=== PATIENT | male | born 1990 | race Caucasian/White ===

== ENCOUNTER 2016-10-16 16:03 | Emergency (ER) | payer OTHER ==
[2016-10-16] MEDS ORDERED: LIDOCAINE 2% MDV 20 ML VIAL As Ordered ONE (18:08)
[2016-10-16] MEDS ORDERED: LIDOCAINE 1% MDV 20ML VIAL As Ordered ONE (18:18)
--- NOTE | 2016-10-16 18:51 | EDDOCDS ---
Physician Documentation [facility] Name: Valentino Antonio Age: 26 yrs Sex: Male : 1990 Arrival Date: 10/16/2016 Time: 16:03 Bed PD Private MD: NO PRIMARY PHYSICIAN, . Disposition: 10/16/16 18:45 Discharged to Home/Self Care. Impression: Laceration without foreign body of left thumb with damage to nail, Laceration without foreign body of left middle finger with damage to nail. - Condition is Stable. - Discharge Instructions: Laceration Care, Adult, Fingernail or Toenail Loss. - Medication Reconciliation, Local Pharmacy Hours form. - Follow up: LIONEL Theodore; When: Call to arrange an appointment; Reason: Recheck today's complaints, Continuance of care. - Problem is new. - Symptoms are unchanged. - Notes: have suture removed in 10-13 days Historical: - Allergies: no known allergies; - Home Meds: 1. none - PMHx: none; - PSHx: none; - Immunization history:: Last tetanus immunization: up to date. - Family history: Not pertinent. - Social history: Smoking status: Patient uses tobacco products, heavy tobacco smoker. Patient/guardian denies using alcohol, street drugs, No barriers to communication noted, The patient speaks fluent Kazakh, Speaks appropriately for age. - : The pt / caregiver states he / she is not on anticoagulants. Home medication list is obtained from the patient. - Exposure Risk Screening:: None identified. Vital Signs: 10/16 16:04 BP 134 / 68; Pulse 107; Resp 18; Temp 97.2(T); Pulse Ox 97% on R/A; Weight 61.23 kg / dem1 134.99 lbs; Height 65 in. (165.10 cm); Pain 6/10; 16:04 Body Mass Index 22.46 (61.23 kg, 165.10 cm) dem1 MDM: 18:05 Lidocaine 20 mg/mL (2 %) 10 ml Infiltration once; to bedside ordered. mo1 18:05 Dressing ordered. mo1 18:13 Financial registration complete. gjb 18:14 [facility] Payment Agreement was scanned into [employer] and attached to record. gjb 18:45 Splint Affected Extremity ordered. mo1 Administered Medications: 18:45 Drug: Lidocaine 10 ml [lidocaine 20 mg/mL (2 %) injection solution (10 mL)] {Note: use kr3 by Michael ELLIOTT.} Route: Infiltration; Signatures: Keke YehRN RN kr3 Cheryl Lozano RN RN ttb Valentino Norton PA PA mo1 Valentine Harden The chart was reviewed and I authenticate all verbal orders and agree with the evaluation and treatment provided.Attachments: 18:14 [facility] [place] Payment Agreement [employer] MTDD
--- NOTE | 2016-10-16 18:51 | EDDOCDS ---
Nurse's Notes [facility] Name: Valentino Antonio Age: 26 yrs Sex: Male : 1990 Arrival Date: 10/16/2016 Time: 16:03 Bed PD Private MD: NO PRIMARY PHYSICIAN, . Diagnosis: Laceration without foreign body of left thumb with damage to nail;Laceration without foreign body of left middle finger with damage to nail Presentation: 10/16 16:51 Presenting complaint: Patient states: cut thumb and middle finger on left hand on screw ttb approx 2 hours ago. Bleeding controlled in triage. Adult Sepsis Screening: The patient does not have new or worsening altered mentation. Patient's respiratory rate is less than 22. Systolic blood pressure is greater than 100. Patient has a qSOFA score of 0- Negative Sepsis Screen. Suicide/Homicide risk assessment- the patient denies having any suicidal and/or homicidal ideations and does not present with any other emotional, behavioral or mental health complaints. Status: The patient is an active duty car rental service attendant. Transition of care: patient was not received from another setting of care. 16:51 Acuity: SHIMON Level 4 ttb 16:51 Method Of Arrival: Walkin/Carried/Asstd ttb Triage Assessment: 16:52 General: Appears in no apparent distress, well nourished, well groomed, Behavior is ttb appropriate for age, cooperative, pleasant. Pain: Location: fingers on left hand 6/10. HIV screening NA for this visit Offered previously. Neurological: Level of Consciousness is awake, alert. Cardiovascular: Chest pain is denied. Respiratory: No deficits noted. Airway is patent Denies cough, shortness of breath. Derm: Skin is normal, lac noted to left thumb and middle finger. Injury Description: Laceration sustained to left thumb and middle finger is clean, 0.5 to 2.5 cm long, was sustained 2-4 hours ago. is bleeding no active bleeding noted. Historical: - Allergies: no known allergies; - Home Meds: 1. none - PMHx: none; - PSHx: none; - Immunization history:: Last tetanus immunization: up to date. - Family history: Not pertinent. - Social history: Smoking status: Patient uses tobacco products, heavy tobacco smoker. Patient/guardian denies using alcohol, street drugs, No barriers to communication noted, The patient speaks fluent [place] Islander, Speaks appropriately for age. - : The pt / caregiver states he / she is not on anticoagulants. Home medication list is obtained from the patient. - Exposure Risk Screening:: None identified. Screenin:11 Screening information is obtained from the patient. Fall risk: No risks identified. kr3 Assistance ADL's: requires no assistance with activities of daily living. Abuse/DV Screen: The patient / caregiver reports he/she is: not in a situation that causes fear, pain or injury. Nutritional screening: No deficits noted. Advance Directives: Currently, there is no health care proxy. home support is adequate. Assessment: 18:10 General: Appears in no apparent distress, comfortable, Behavior is cooperative. kr3 Respiratory: Respiratory effort is even, unlabored. Musculoskeletal: Range of motion intact in all extremities. Injury Description: Laceration sustained to left middle finger and left thumb is clean, is bleeding no active bleeding noted. Vital Signs: 16:04 BP 134 / 68; Pulse 107; Resp 18; Temp 97.2(T); Pulse Ox 97% on R/A; Weight 61.23 kg; [facility] Height 65 in. (165.10 cm); Pain 6/10; 16:04 Body Mass Index 22.46 (61.23 kg, 165.10 cm) [facility] Vitals: 16:04 Log In Time: October 16, 2016 at 16:02. [facility] ED Course: 16:03 Patient visited by Jeannie Juarez. dem1 16:03 NO PRIMARY PHYSICIAN, . is Private Physician. dem1 16:03 Patient moved to Waiting [facility] 16:04 Patient moved to Pre RCE dem1 16:51 Triage Initiated ttb 17:01 Patient moved to Triage 1 ka4 18:01 Valentino Norton PA is PHCP. mo1 18:01 Melonie Au MD is Attending Physician. mo1 18:03 Patient visited by Valentino Norton PA. mo1 18:07 Patient moved to PD kr3 18:11 The patient / caregiver is instructed regarding the plan of care and ED course. Patient kr3 has correct armband on for positive identification. 18:11 No IV's were initiated during this patient's visit. No procedures done that require kr3 assistance. 18:14 [place] [place] Agreement was scanned into [employer] and attached to record. gjb 18:28 Patient name changed from Valentino\S\\S\Manderson\S\ to Valentino\S\Jakob\S\Marisela. EDMS 18:45 Ewelina [facility] is Referral Physician. mo1 18:50 Wound care to laceration bulky dressing applied by Naz ELLIOTT. kr3 Administered Medications: 18:45 Drug: Lidocaine 10 ml [lidocaine 20 mg/mL (2 %) injection solution (10 mL)] {Note: use kr3 by Michael ELLIOTT.} Route: Infiltration; Order Results: There are currently no results for this order. Outcome: 18:11 No special radiology studies were completed. kr3 18:45 Discharge ordered by Provider. mo1 18:49 Discharge Assessment: patient administered narcotics - no. The following High Risk kr3 Discharge criteria are identified: None. Discharged to home ambulatory. Condition: stable. Discharge instructions given to patient, Instructed on discharge instructions, follow up and referral plans. wound care, Demonstrated understanding of instructions, Pt was receptive of discharge instructions/ teaching. Property sent home with patient. 18:50 Patient left the ED. kr3 Signatures: Dispatcher [employer] EDMS Keke Yeh,RN RN kr3 Jeannie Juarez Teresa, CARLIN RN ttb Valentino Norton PA PA mo1 Keturah Sampson LPN LPN ka4 Beck, Gabriela [facility] MTDD
--- NOTE | 2016-10-18 19:51 | EDDOCDS ---
Nurse's Notes [facility] Name: Valentino Antonio Age: 26 yrs Sex: Male : 1990 Arrival Date: 10/16/2016 Time: 16:03 Bed PD Private MD: NO PRIMARY PHYSICIAN, . Diagnosis: Laceration without foreign body of left thumb with damage to nail;Laceration without foreign body of left middle finger with damage to nail Presentation: 10/16 16:51 Presenting complaint: Patient states: cut thumb and middle finger on left hand on screw ttb approx 2 hours ago. Bleeding controlled in triage. Adult Sepsis Screening: The patient does not have new or worsening altered mentation. Patient's respiratory rate is less than 22. Systolic blood pressure is greater than 100. Patient has a qSOFA score of 0- Negative Sepsis Screen. Suicide/Homicide risk assessment- the patient denies having any suicidal and/or homicidal ideations and does not present with any other emotional, behavioral or mental health complaints. Status: The patient is an active duty seafood service team member. Transition of care: patient was not received from another setting of care. 16:51 Acuity: SHIMON Level 4 ttb 16:51 Method Of Arrival: Walkin/Carried/Asstd ttb Triage Assessment: 16:52 General: Appears in no apparent distress, well nourished, well groomed, Behavior is ttb appropriate for age, cooperative, pleasant. Pain: Location: fingers on left hand 6/10. HIV screening NA for this visit Offered previously. Neurological: Level of Consciousness is awake, alert. Cardiovascular: Chest pain is denied. Respiratory: No deficits noted. Airway is patent Denies cough, shortness of breath. Derm: Skin is normal, lac noted to left thumb and middle finger. Injury Description: Laceration sustained to left thumb and middle finger is clean, 0.5 to 2.5 cm long, was sustained 2-4 hours ago. is bleeding no active bleeding noted. Historical: - Allergies: no known allergies; - Home Meds: 1. none - PMHx: none; - PSHx: none; - Immunization history:: Last tetanus immunization: up to date. - Family history: Not pertinent. - Social history: Smoking status: Patient uses tobacco products, heavy tobacco smoker. Patient/guardian denies using alcohol, street drugs, No barriers to communication noted, The patient speaks fluent South African, Speaks appropriately for age. - : The pt / caregiver states he / she is not on anticoagulants. Home medication list is obtained from the patient. - Exposure Risk Screening:: None identified. Screenin:11 Screening information is obtained from the patient. Fall risk: No risks identified. kr3 Assistance ADL's: requires no assistance with activities of daily living. Abuse/DV Screen: The patient / caregiver reports he/she is: not in a situation that causes fear, pain or injury. Nutritional screening: No deficits noted. Advance Directives: Currently, there is no health care proxy. home support is adequate. Assessment: 18:10 General: Appears in no apparent distress, comfortable, Behavior is cooperative. kr3 Respiratory: Respiratory effort is even, unlabored. Musculoskeletal: Range of motion intact in all extremities. Injury Description: Laceration sustained to left middle finger and left thumb is clean, is bleeding no active bleeding noted. Vital Signs: 16:04 BP 134 / 68; Pulse 107; Resp 18; Temp 97.2(T); Pulse Ox 97% on R/A; Weight 61.23 kg; [facility] Height 65 in. (165.10 cm); Pain 6/10; 16:04 Body Mass Index 22.46 (61.23 kg, 165.10 cm) [facility] Vitals: 16:04 Log In Time: October 16, 2016 at 16:02. [facility] ED Course: 16:03 Patient visited by Jeannie Juarez. dem1 16:03 NO PRIMARY PHYSICIAN, . is Private Physician. dem1 16:03 Patient moved to Waiting [facility] 16:04 Patient moved to Pre RCE dem1 16:51 Triage Initiated ttb 17:01 Patient moved to Triage 1 ka4 18:01 Valentino Norton PA is PHCP. mo1 18:01 Melonie Au MD is Attending Physician. mo1 18:03 Patient visited by Valentino Norton PA. mo1 18:07 Patient moved to PD kr3 18:11 The patient / caregiver is instructed regarding the plan of care and ED course. Patient kr3 has correct armband on for positive identification. 18:11 No IV's were initiated during this patient's visit. No procedures done that require kr3 assistance. 18:14 [facility] [place] Payment Agreement was scanned into [employer] and attached to record. gjb 18:28 Patient name changed from Valentino\S\\S\[place]\S\ to Valentino\S\Jakob\S\[place]. EDMS 18:45 Ewelina [facility] is Referral Physician. mo1 18:50 Wound care to laceration bulky dressing applied by Naz ELLIOTT. kr3 10/17 07:14 T-Sheet-- Draft Copy was scanned into [employer] and attached to record. gb Administered Medications: 10/16 18:45 Drug: Lidocaine 10 ml [lidocaine 20 mg/mL (2 %) injection solution (10 mL)] {Note: use kr3 by Michael ELLIOTT.} Route: Infiltration; Order Results: There are currently no results for this order. Outcome: 18:11 No special radiology studies were completed. kr3 18:45 Discharge ordered by Provider. mo1 18:49 Discharge Assessment: patient administered narcotics - no. The following High Risk kr3 Discharge criteria are identified: None. Discharged to home ambulatory. Condition: stable. Discharge instructions given to patient, Instructed on discharge instructions, follow up and referral plans. wound care, Demonstrated understanding of instructions, Pt was receptive of discharge instructions/ teaching. Property sent home with patient. 18:50 Patient left the ED. kr3 Signatures: Dispatcher [employer] EDMS Kelly Valle, Pj Oliva Keke Yeh,RN RN randy3 Jeannie Juarez Teresa, RN RN geoffb Valentino Norton PA PA mo1 Keturah Sampson,Valentine Adams LPN [facility] Chart Complete MTDD
--- NOTE | 2016-10-18 19:51 | EDDOCDS ---
Physician Documentation [facility] Name: Valentino Antonio Age: 26 yrs Sex: Male : 1990 Arrival Date: 10/16/2016 Time: 16:03 Bed PD Private MD: NO PRIMARY PHYSICIAN, . Disposition: 10/16/16 18:45 Discharged to Home/Self Care. Impression: Laceration without foreign body of left thumb with damage to nail, Laceration without foreign body of left middle finger with damage to nail. - Condition is Stable. - Discharge Instructions: Laceration Care, Adult, Fingernail or Toenail Loss. - Medication Reconciliation, Local Pharmacy Hours form. - Follow up: LIONEL Theodore; When: Call to arrange an appointment; Reason: Recheck today's complaints, Continuance of care. - Problem is new. - Symptoms are unchanged. - Notes: have suture removed in 10-13 days Historical: - Allergies: no known allergies; - Home Meds: 1. none - PMHx: none; - PSHx: none; - Immunization history:: Last tetanus immunization: up to date. - Family history: Not pertinent. - Social history: Smoking status: Patient uses tobacco products, heavy tobacco smoker. Patient/guardian denies using alcohol, street drugs, No barriers to communication noted, The patient speaks fluent Indonesian, Speaks appropriately for age. - : The pt / caregiver states he / she is not on anticoagulants. Home medication list is obtained from the patient. - Exposure Risk Screening:: None identified. Vital Signs: 10/16 16:04 BP 134 / 68; Pulse 107; Resp 18; Temp 97.2(T); Pulse Ox 97% on R/A; Weight 61.23 kg / dem1 134.99 lbs; Height 65 in. (165.10 cm); Pain 6/10; 16:04 Body Mass Index 22.46 (61.23 kg, 165.10 cm) dem1 Procedures: 18:51 Laceration repair:. mo1 Laceration: 18:51 Wound Repair of 1.5cm ( 0.6in ) full thickness laceration to dorsal aspect of distal mo1 phalanx of left thumb. Linear shaped.. Distal neuro/vascular/tendon intact. Anesthesia: Local anesthetic administered with 1 mls of 2% lidocaine. Wound prep: Simple cleansing with hibiclenz by provider. Skin closed with 2 x 4-0 Prolene using Simple interrupted sutures. Dressed with Bacitracin. Patient tolerated well. MDM: 18:05 Lidocaine 20 mg/mL (2 %) 10 ml Infiltration once; to bedside ordered. mo1 18:05 Dressing ordered. mo1 18:13 Financial registration complete. gjb 18:14 [facility] Payment Agreement was scanned into [employer] and attached to record. gjb 18:45 Splint Affected Extremity ordered. mo1 10/17 07:14 T-Sheet-- Draft Copy was scanned into [employer] and attached to record. gb Administered Medications: 10/16 18:45 Drug: Lidocaine 10 ml [lidocaine 20 mg/mL (2 %) injection solution (10 mL)] {Note: use kr3 by Michael ELLIOTT.} Route: Infiltration; Signatures: Kelly Valle, Pj Reg Keke Dee RN RN kr3 Cheryl Lozano RN RN ttb Valentino Norton PA PA mo1 Valentine Harden The chart was reviewed and I authenticate all verbal orders and agree with the evaluation and treatment provided.Attachments: 18:14 [facility] Payment Agreement gjb 10/17 07:14 T-Sheet-- Draft Copy gb Chart Complete MTDD
--- NOTE | 2016-10-18 19:51 | EDDOCDS ---
Physician Documentation [facility] Name: Valentino Antonio Age: 26 yrs Sex: Male : 1990 Arrival Date: 10/16/2016 Time: 16:03 Bed PD Private MD: NO PRIMARY PHYSICIAN, . Disposition: 10/16/16 18:45 Discharged to Home/Self Care. Impression: Laceration without foreign body of left thumb with damage to nail, Laceration without foreign body of left middle finger with damage to nail. - Condition is Stable. - Discharge Instructions: Laceration Care, Adult, Fingernail or Toenail Loss. - Medication Reconciliation, Local Pharmacy Hours form. - Follow up: LIONEL Theodore; When: Call to arrange an appointment; Reason: Recheck today's complaints, Continuance of care. - Problem is new. - Symptoms are unchanged. - Notes: have suture removed in 10-13 days Historical: - Allergies: no known allergies; - Home Meds: 1. none - PMHx: none; - PSHx: none; - Immunization history:: Last tetanus immunization: up to date. - Family history: Not pertinent. - Social history: Smoking status: Patient uses tobacco products, heavy tobacco smoker. Patient/guardian denies using alcohol, street drugs, No barriers to communication noted, The patient speaks fluent Bengali, Speaks appropriately for age. - : The pt / caregiver states he / she is not on anticoagulants. Home medication list is obtained from the patient. - Exposure Risk Screening:: None identified. Vital Signs: 10/16 16:04 BP 134 / 68; Pulse 107; Resp 18; Temp 97.2(T); Pulse Ox 97% on R/A; Weight 61.23 kg / dem1 134.99 lbs; Height 65 in. (165.10 cm); Pain 6/10; 16:04 Body Mass Index 22.46 (61.23 kg, 165.10 cm) dem1 Procedures: 18:51 Laceration repair:. mo1 Laceration: 18:51 Wound Repair of 1.5cm ( 0.6in ) full thickness laceration to dorsal aspect of distal mo1 phalanx of left thumb. Linear shaped.. Distal neuro/vascular/tendon intact. Anesthesia: Local anesthetic administered with 1 mls of 2% lidocaine. Wound prep: Simple cleansing with hibiclenz by provider. Skin closed with 2 x 4-0 Prolene using Simple interrupted sutures. Dressed with Bacitracin. Patient tolerated well. MDM: 18:05 Lidocaine 20 mg/mL (2 %) 10 ml Infiltration once; to bedside ordered. mo1 18:05 Dressing ordered. mo1 18:13 Financial registration complete. gjb 18:14 [facility] Payment Agreement was scanned into [employer] and attached to record. gjb 18:45 Splint Affected Extremity ordered. mo1 10/17 07:14 T-Sheet-- Draft Copy was scanned into [employer] and attached to record. gb Administered Medications: 10/16 18:45 Drug: Lidocaine 10 ml [lidocaine 20 mg/mL (2 %) injection solution (10 mL)] {Note: use kr3 by Michael ELLIOTT.} Route: Infiltration; Signatures: Kelly Valle, Pj Reg Keke Dee RN RN kr3 Cheryl Lozano RN RN ttb Valentino Norton PA PA mo1 Valentine Harden The chart was reviewed and I authenticate all verbal orders and agree with the evaluation and treatment provided.Attachments: 18:14 [facility] Payment Agreement gjb 10/17 07:14 T-Sheet-- Draft Copy gb Chart Complete MTDD
== END 2016-10-16 18:50 | disposition home or self-care (01) ==
LOC: M ED 16:03
DX: S61.012A Laceration without foreign body of left thumb without damage to nail, initial encounter (principal); S61.213A Laceration without foreign body of left middle finger without damage to nail, initial encounter; W26.0XXA Contact with knife, initial encounter; Y92.019 Unspecified place in single-family (private) house as the place of occurrence of the external cause; Y93.89 Activity, other specified; Y99.8 Other external cause status; Z72.0 Tobacco use